=== PATIENT | female | born 1980 | race American Indian/Alaskan Native ===

== ENCOUNTER 2018-02-07 23:55 | Emergency (ER) | payer SELFPAY ==
[2018-02-08 00:17] VITALS: BP 103/68
[2018-02-08] MEDS ORDERED: DILAUDID ONE (00:45)
[2018-02-08] MEDS ORDERED: ZOFRAN ONE (00:46)
[2018-02-08] MEDS ORDERED: NACL 0.9% 500 ML IR ONE (01:09)
[2018-02-08] MEDS ORDERED: ZOFRAN IV ONE (01:17)
[2018-02-08] MEDS ORDERED: DILAUDID IV ONE (01:17)
[2018-02-08] MEDS ORDERED: TENIVAC IM ONE (01:18)
[2018-02-08] MEDS ORDERED: BOOSTRIX IM ONE (01:19)
--- NOTE | 2018-02-08 01:32 | Emergency Department Report ---
- General Chief Complaint: Wound/Laceration Stated Complaint: RIGHT HAND LACERATION Time Seen by Provider: 02/08/18 00:09 Source: patient Mode of arrival: Ambulatory Limitations: No Limitations - History of Present Illness Initial Comments: 37 yo female with no significant past medical history presents to the hospital laceration to her right hand and decreased movement of thumb. Patient was attempting to open a champagne bottle with a knife. She then cut her right hand on sharp pieces from the bottle. Pain is constant, rated 10/10 in intensity, worse and movement and palpation. A lot of bleeding reported at the scene. Presents with pressure dressing. Patient is right-hand dominant. - Related Data Previous Rx's Medication Instructions Recorded Last Taken Type Cephalexin [Keflex] 500 mg PO Q8HR 7 Days cap 02/08/18 Unknown Rx Ibuprofen [Motrin] 800 mg PO Q8HR PRN #30 tablet 02/08/18 Unknown Rx Allergies Allergy/AdvReac Type Severity Reaction Status Date / Time No Known Allergies Allergy Verified 02/08/18 00:17 ED Review of Systems ROS: Stated complaint: RIGHT HAND LACERATION Other details as noted in HPI Comment: All other systems reviewed and negative ED Past Medical Hx - Past Medical History Previous Medical History?: No - Surgical History Past Surgical History?: No - Social History Smoking Status: Never Smoker - Medications Home Medications: Home Medications Medication Instructions Recorded Confirmed Last Taken Type Cephalexin [Keflex] 500 mg PO Q8HR 7 Days cap 02/08/18 Unknown Rx Ibuprofen [Motrin] 800 mg PO Q8HR PRN #30 tablet 02/08/18 Unknown Rx ED Physical Exam - General Limitations: No Limitations - Other Other exam information: General: No limitations, patient is alert in no acute distress Head exam: Atraumatic, normocephalic Eyes exam: Normal appearance ENT: Moist mucous membrane, normal oropharynx Neck exam: Normal inspection, full range of motion, no meningismus nontender Respiratory exam: Clear to auscultation bilateral, no wheezes, rales, crackles Cardiovascular: Normal rate and rhythm, normal heart sounds Abdomen: Soft, nondistended, and nontender, with normal bowel sounds, no rebound, or guarding Extremity: Right hand 3 cm laceration. Sensation to distal finger tips intact. Patient unable to extend the thumb despite decrease in pain. Back: Normal Inspection, full range of motion, no tenderness Neurologic: Alert, oriented x3, cranial nerves intact, no motor or sensory deficit Psychiatric: normal affect, normal mood Skin: 3 cm laceration to dorsum of the hand between the first and second metacarpal ED Course Vital Signs 02/08/18 02/08/18 00:13 00:17 Temperature 98.3 F Pulse Rate 95 H Respiratory 20 20 Rate Blood Pressure 103/68 Blood Pressure 103/68 [Right] O2 Sat by Pulse 98 98 Oximetry - Consultations Consultation #1: 02/08/18 01:31 case d/w DR Lyman hand surgeon at [place]. Recommend close, splint and follow up with hand for possible tendon repair - Laceration /Wound Repair Right Hand Wound Location: upper extremity Wound Length (cm): 3 Wound's Depth, Shape: linear Wound Explored: no foreign body removed Betadine Prep?: Yes Anesthesia: 1% Lidocaine Volume Anesthetic (ccs): 5 Wound Debrided: none Wound Repaired With: sutures Suture Size/Type: 4:0, proline Number of Sutures: 6 Layer Closure?: No Sterile Dressing Applied?: Yes Progress: likely tendon injury ED Medical Decision Making - Radiology Data Radiology results: image reviewed (read by me, right hand x-ray: No acute findings, no fracture, no radiopaque foreign body) - Medical Decision Making Tetanus provided in the ED No radiopaque foreign body identified on x-ray Patient has likely an extensor tendon injury affecting the thumb Case discussed with on-call hand surgeon Dr. Lyman at [place] Recommend primary closure, thumb splint, and outpatient follow-up - Differential Diagnosis laceration, fracture, tendon injury, vascular injury, nerve injury, retaine Critical Care Time: No Critical care attestation.: If time is entered above; I have spent that time in minutes in the direct care of this critically ill patient, excluding procedure time. ED Disposition Clinical Impression: Laceration of right hand involving tendon Qualifiers: Encounter type: initial encounter Qualified Code(s): S61.411A - Laceration without foreign body of right hand, initial encounter; S66.921A - Laceration of unspecified muscle, fascia and tendon at wrist and hand level, right hand, initial encounter Disposition: TO HOME OR SELFCARE Is pt being admited?: No Does the pt Need Aspirin: No Condition: Stable Instructions: Laceration (ED) Additional Instructions: You received repair of your laceration today in the ER however, you likely have a tendon injury causing his to be unable to move her thumb backwards. It is very important to follow-up with a hand surgeon for further treatment. The stitches need to be removed in 7-10 days. Advised removal by the follow-up physician with the hand clinic. You may follow up here for stitches removal if your are unable to see the specialist. Return if signs of infection as discussed. Prescriptions: Cephalexin [Keflex] 500 mg PO Q8HR 7 Days cap Ibuprofen [Motrin] 800 mg PO Q8HR PRN #30 tablet PRN Reason: Pain [facility]errals: [facility] [Other] - 3-5 Days ([facility]) Time of Disposition: 03:02
[2018-02-08] MEDS ORDERED: XYLOCAINE 1% 20 mL INFILTRATI ONE (01:37)
--- NOTE | 2018-02-08 02:44 | XRay Report ---
FINAL REPORT EXAM: XR HAND 3+V RT HISTORY: cut hand on glass COMPARISON: None available. FINDINGS: Three views the right hand were obtained. No radiopaque foreign body. Soft tissue injury along the 1st metacarpal bone. Bony structures are intact. Joint spaces are preserved. No acute fracture dislocation. IMPRESSION: No acute bony abnormality. Soft tissue injury along the 1st metacarpal bone. No radiopaque foreign body.
[2018-02-08] MEDS ORDERED: NACL 0.9% IR ONE (05:42)
== END 2018-02-08 03:43 | disposition home or self-care (01) ==
LOC: ED 23:55
DX: S66.921A Laceration of unspecified muscle, fascia and tendon at wrist and hand level, right hand, initial encounter (principal); W26.8XXA Contact with other sharp object(s), not elsewhere classified, initial encounter; Y93.89 Activity, other specified; Y92.89 Other specified places as the place of occurrence of the external cause; Y99.8 Other external cause status
CPT/HCPCS: 12002; 73130; 90471; 90715; 96374; 96375; 99283; J1170; J2405

== ENCOUNTER 2018-02-22 17:37 | Emergency (ER) | payer OTHER ==
[2018-02-22 18:30] VITALS: BP 135/68
--- NOTE | 2018-02-22 19:42 | Emergency Department Report ---
Suture/Staple Removal - HPI Chief Complaint: Laceration/Recheck/Suture Stated Complaint: SUTURE REMOVAL Time Seen by Provider: 02/22/18 19:12 When Sutures or Nehal Placed: >14 Days Ago Wound Location: right thumb snuffbox region ED Review of Systems ROS: Stated complaint: SUTURE REMOVAL Other details as noted in HPI Constitutional: denies: chills, fever Eyes: denies: eye pain, eye discharge, vision change ENT: denies: ear pain, throat pain Respiratory: denies: cough, shortness of breath, wheezing Cardiovascular: denies: chest pain, palpitations Endocrine: no symptoms reported Gastrointestinal: denies: abdominal pain, nausea, diarrhea Genitourinary: denies: urgency, dysuria, discharge Musculoskeletal: as per HPI (tingling and right thumb pain w/ ROM since laceration). denies: back pain, joint swelling, arthralgia Skin: denies: rash, lesions Neurological: denies: headache, weakness, paresthesias Psychiatric: denies: anxiety, depression Hematological/Lymphatic: denies: easy bleeding, easy bruising ED Past Medical Hx - Past Medical History Previous Medical History?: No - Surgical History Past Surgical History?: No - Social History Smoking Status: Never Smoker Substance Use Type: None - Medications Home Medications: Home Medications Medication Instructions Recorded Confirmed Last Taken Type Cephalexin [Keflex] 500 mg PO Q8HR 7 Days cap 02/08/18 Unknown Rx Ibuprofen [Motrin] 800 mg PO Q8HR PRN #30 tablet 02/08/18 Unknown Rx Suture Removal Exam - Exam General: Vital signs noted. No distress. Alert and acting appropriately. Wound: No Pathologic Erythema, No Tenderness, No Drainage, No Pus, No Wound Dehiscence (minimal to no dehiscnece near middle portion of wound, no signs of cellulitis or infection) Other Systems: All other systems reviewed and are unremarkable. ED Course Vital Signs 02/22/18 18:25 Temperature 98.6 F Pulse Rate 80 Respiratory 16 Rate Blood Pressure 135/68 O2 Sat by Pulse 100 Oximetry ED Recheck MDM - Differential Diagnosis Suture/Staple Removal - Medical Decision Making A/P: Right hand/thumb suture removal 1-no clinical signs of cellulitis abscess or infection at this time. there is no erythema. Minimal to no wound dehiscence, superficial area less than 0.5cm near middle of wound, rest is closed. 2-6 nylon sutures removed 3-pt states she has had trouble with right thumb extension/abduction since sustaining laceration, will refer to ortho. pt may have sustained tendon injury 4-pt finished her course of keflex. I advised her to return to the ED if she develops erythema or pus drainage at site of recent laceration Critical care attestation.: If time is entered above; I have spent that time in minutes in the direct care of this critically ill patient, excluding procedure time. ED Disposition Clinical Impression: Visit for suture removal Disposition: TO HOME OR SELFCARE Is pt being admited?: No Does the pt Need Aspirin: No Condition: Stable Instructions: Suture Removal (ED) Additional Instructions: [email or web address] Referrals: JANNY BENITEZ MD [Primary Care Provider] - 3-5 Days [facility] [Provider Group] - 3-5 Days BING HATCH MD [Staff Physician] - 3-5 Days Time of Disposition: 19:41
== END 2018-02-22 19:45 | disposition home or self-care (01) ==
LOC: ED 17:37
DX: Z48.02 Encounter for removal of sutures (principal)